=== PATIENT | male | born 1955 | race Caucasian/White ===

== ENCOUNTER 2020-06-30 18:16 | Emergency (ER) | payer OTHER, SELFPAY ==
--- NOTE | ~2020-06-30 | XR_ITS ---
EXAMINATION: XR chest 2V DATE: 06/30/2020 18:38 INDICATION: Cough and congestion. TECHNIQUE: Frontal and lateral views of the chest were obtained. COMPARISON: Chest 2 views 07/09/2018 FINDINGS: The chest demonstrates clear lungs without pneumonia, pleural effusion, or pneumothorax. Th e heart size is normal. IMPRESSION: 1. No acute cardiopulmonary disease. Reviewed, dictated and finalized at location A.
[2020-06-30 18:25] VITALS: BP 148/70; PULSE 89; RESP 18; TEMP 37.6; O2SAT 98
--- NOTE | 2020-06-30 18:31 | ED.URI ---
HPI - URI/Sore Throat General Chief Complaint: Upper Respiratory Infection Stated Complaint: Cough,congestion Time Seen by Provider: 06/30/20 18:31 Source: patient Mode of arrival: ambulatory Limitations: no limitations History of Present Illness HPI Narrative: Prudencio Gomez is a 65 yo male with a PMH of HTN, high cholesterol, GERD, BPH, JARETH,who developed deep hacking cough on Fri - somewhat productive, not aware of post nasal drip, slept sitting up last night due to cough. Once starts, continues to cough. Mucinex and Nyquil not help. Is a non- smoker; has continue using CPAP Related Data Home Medications Medication Instructions Recorded Confirmed lisinopril 1 mg PO DAILY 06/30/20 06/30/20 omeprazole 1 mg PO DAILY 06/30/20 06/30/20 simvastatin 1 mg PO DAILY 06/30/20 06/30/20 tamsulosin 1 mg PO DAILY 06/30/20 06/30/20 Allergies Allergy/AdvReac Type Severity Reaction Status Date / Time No Known Allergies Allergy Verified 06/30/20 18:31 Review of Systems Review of Systems: Narrative: CONSTITUTIONAL: Denies fever, chills, sweats. EYES: Denies visual changes, redness, discharge. ENT: Denies rhinorrhea, has congestion, sore throat, otalgia. CARDIOVASCULAR: Denies chest pain, palpitations, edema. RESPIRATORY: Denies dyspnea, wheezing, has cough, increased respiratory rate GASTROINTESTINAL: Denies abdominal pain, nausea, vomiting, diarrhea. GENITOURINARY: Denies dysuria, hematuria, abnormal discharge SKIN: Denies rash or itching. NEUROLOGIC: Denies numbness, or focal weakness. PSYCHIATRIC: Denies anxiety or depression. [facility] Past Medical History Medical History BPH (benign prostatic hyperplasia) GERD (gastroesophageal reflux disease) High cholesterol Hypertension Morbid obesity Surgical History Surgical History History of knee replacement Family History Family History Mother Hypertension Grandparent Cerebrovascular accident Family history of coronary artery disease Father No problems noted. Sibling Multiple sclerosis Social History Social History Smoking status: Never smoker Alcohol intake: current Substance use: never Additional occupation/education comments: [employer] Gender identity (if verbalized by the patient): Male Comments At time of signature, I agree with nursing past medical, surgical, social and family history. There is no relevant family history pertinent to the presenting complaint. Pt has HTN. Exam Narrative: Exam Narrative: GENERAL: This is a well-nourished, well-developed patient, in moderate distress. HEAD: normocephalic, atraumatic. EYES: \ Sclera clear/white. Vision is grossly intact. EARS: External ears normal,. Hearing grossly intact. NOSE: External nose normal without nasal discharge, nares with redness, no rhinorrhea. THROAT: Mucous membranes moist, posterior pharynx erythema NECK: Neck supple, non-tender CARDIOVASCULAR: Regular rate and rhythm without murmurs, gallops, or rubs. RESPIRATORY: Coarse to auscultation. Increased rate breath sounds equal bilaterally. No wheezes, rales, or rhonchi.Coughs almost constantly- dry, hacky GASTROINTESTINAL: Abdomen soft, SKIN: warm, intact with no suspicious lesions or rash, good texture and turgor. NEURO: awake, alert, and oriented to person, place and time. There were no obvious focal neurologic abnormalities. Steady gait EXTREMITIES: Normal range of motion. BACK: Nontender without deformity Course Course Emergency Course: Patient is a 65-year-old male who comes to [facility] with complaints of coughing x2 to 3 days, hacking cough denies postnasal drip, has tried NyQuil and Mucinex Chest x-ray showed no acute cardiopulmonary disease Patient started on steroids, codeine cough
[2020-06-30] MEDS: predniSONE 20 MG TABLET 60 MG PO (18:52)
== END 2020-06-30 18:55 | disposition home or self-care (01) ==
PROVIDERS: Emergency Provider Nurse Practitioner; PCP Family Medicine
DX: J20.9 Acute bronchitis, unspecified (principal); N40.0 Benign prostatic hyperplasia without lower urinary tract symptoms; K21.9 Gastro-esophageal reflux disease without esophagitis; E78.00 Pure hypercholesterolemia, unspecified; I10 Essential (primary) hypertension; E66.01 Morbid (severe) obesity due to excess calories; Z68.42 Body mass index [BMI] 45.0-49.9, adult
CPT/HCPCS: 71046; 99213; G0463; J7512